=== PATIENT | female | born 1930 | race Caucasian/White ===

== ENCOUNTER 2017-04-15 08:27 | Outpatient (CLI) | payer MEDICARE, OTHER ==
[2017-04-15 09:04] LABS: #Basophils 0.1 thou/uL (0.0-0.2); #Eosinphils 0.2 thou/uL (0.0-0.7); #Lymphocytes 1.4 thou/uL (1.20-3.40); #Monocytes 0.7 thou/uL (0.11-0.59); #Neutrophils 4.9 thou/uL (1.40-6.50); %Basophils 1.4 % (0.0-1.0); %Eosinophils 2.7 % (0.0-10.0); %Lymphocytes 19.4 % (21.0-51.0); %Monocytes 10.1 % (0.0-10.0); %Neutrophils 66.3 % (42.0-75.0); Hemoglobin 13.7 g/dL (12.0-16.0); Mean Corpuscular HGB CONC 32.7 g/dL (32.0-36.0); Mean Corpuscular Volume 91.8 fl (81.0-99.0); Mean Platelet Volume 7.4 fL (7.4-10.4); Platelet Count 293 thou/uL (130-400); RBC Distribution Width 12.4 % (11.5-14.5); Red Blood Cell (RBC) Count 4.56 mill/uL (4.20-5.40); White Blood Cell (WBC) Count 7.4 thou/uL (4.8-10.8)
[2017-04-15 10:09] LABS: ALT (SGPT) 18 U/L (8-55); AST (SGOT) 19 U/L (5-34); Albumin 3.9 g/dL (3.4-4.8); Alkaline Phosphatase 118 U/L (40-150); Anion Gap 13 mmol/L (10-20); BUN (Urea Nitrogen) 16 mg/dL (9.8-20.1); Bilirubin, Total 0.6 mg/dL (0.2-1.2); Calc. Creatinine Clearance 0 mL/min (70-130); Carbon Dioxide 24 mmol/L (23-31); Cardiac Risk 3.1 (Less than 4.5); Chloride 105 mmol/L (98-107); Cholesterol 195 mg/dl (< 200 Desired); Estimated GFR-MDRD 70; Globulin 3.4 g/dL (2.4-3.5); Glucose 96 mg/dL (83-110); HDL Cholesterol 63 mg/dL (>60 Neg Risk); LDL Cholesterol, Calculated 114 mg/dL; Protein, Total 7.3 g/dL (6.0-8.3); Sodium 138 mmol/L (136-145); Triglycerides 89 mg/dL (Less than 150)
== END 2017-04-15 08:28 | disposition home or self-care (01) ==
LOC: MADLABBHPM 08:27
PROVIDERS: ATTEND Family Medicine
DX: E78.00 Pure hypercholesterolemia, unspecified (principal); F32.9 Major depressive disorder, single episode, unspecified
CPT/HCPCS: 36415; 80053; 80061; 84443; 85025

== ENCOUNTER 2017-05-20 16:19 | Outpatient (CLI) | payer MEDICARE, OTHER ==
--- NOTE | 2017-05-20 19:40 | CT ---
HEAD CT WITHOUT CONTRAST: Date: 05-20-17 Comparison: 02-25-15 History: Dizziness, off balance, progressive worsening of symptoms over the past two months. Technique: Serial axial CT imaging at 5 mm intervals from vertex through skull base without contrast . FINDINGS: The imaged paranasal sinuses/mastoid air cells are grossly unremarkable. No acute osseous abnormalit y. No intracranial hemorrhage, midline shift, or mass effect. Periventricular and deep white matter hypodensity noted, evidence of small vessel disease. No acute findings. IMPRESSION: Stable head CT. Small vessel disease. No intracranial hemorrhage. POS: [facility]
== END 2017-05-20 16:20 | disposition home or self-care (01) ==
LOC: MADCT 16:19
PROVIDERS: ATTEND Psychiatry & Neurology Clinical Neurophysiology
DX: G93.40 Encephalopathy, unspecified (principal); I73.9 Peripheral vascular disease, unspecified; R29.6 Repeated falls; I65.1 Occlusion and stenosis of basilar artery
CPT/HCPCS: 70450

== ENCOUNTER 2017-07-23 18:21 | Emergency (ER) | payer MEDICARE, OTHER ==
[2017-07-23 19:01] LABS: #Eosinphils 0.1 thou/uL (0.0-0.7); #Lymphocytes 1.2 thou/uL (1.20-3.40); #Monocytes 0.9 thou/uL (0.11-0.59); #Neutrophils 6.1 thou/uL (1.40-6.50); %Basophils 0.6 % (0.0-1.0); %Eosinophils 1.3 % (0.0-10.0); %Lymphocytes 14.7 % (21.0-51.0); %Monocytes 10.8 % (0.0-10.0); %Neutrophils 72.7 % (42.0-75.0); Hemoglobin 13.9 g/dL (12.0-16.0); Mean Corpuscular HGB CONC 32.5 g/dL (32.0-36.0); Mean Corpuscular Volume 89.2 fl (81.0-99.0); Platelet Count 283 thou/uL (130-400); RBC Distribution Width 12.6 % (11.5-14.5); Red Blood Cell (RBC) Count 4.79 mill/uL (4.20-5.40); White Blood Cell (WBC) Count 8.5 thou/uL (4.8-10.8)
[2017-07-23 19:09] LABS: INR-International Normal Ratio 1.1; PTT 30.1 SEC (22.9-36.1); Prothrombin Time 13.8 SEC (12.0-14.7)
[2017-07-23 19:21] LABS: ALT (SGPT) 18 U/L (8-55); AST (SGOT) 18 U/L (5-34); Albumin 3.9 g/dL (3.4-4.8); Alkaline Phosphatase 103 U/L (40-150); Anion Gap 12 mmol/L (10-20); BUN (Urea Nitrogen) 13 mg/dL (9.8-20.1); Bilirubin, Total 0.5 mg/dL (0.2-1.2); CK (CPK) 46 U/L (29-168); Calc. Creatinine Clearance 0 mL/min (70-130); Calcium 9.1 mg/dL (7.8-10.44); Carbon Dioxide 28 mmol/L (23-31); Chloride 104 mmol/L (98-107); Estimated GFR-MDRD 67; Globulin 3.6 g/dL (2.4-3.5); Glucose 90 mg/dL (83-110); Potassium 3.7 mmol/L (3.5-5.1); Protein, Total 7.5 g/dL (6.0-8.3); Sodium 140 mmol/L (136-145)
[2017-07-23 19:22] LABS: CKMB 0.6 ng/mL (0-6.6)
--- NOTE | 2017-07-23 19:50 | RAD ---
PORTABLE AP CHEST X-RAY: 07/23/17 HISTORY: Weakness. COMPARISON: 04/05/16. The cardiac silhouette is magnified by projection. Pulmonary vasculature is within normal limits. Th e lungs are clear. Thoracic aorta is tortuous. There has been no interval change from the prior stud y. IMPRESSION: No acute cardiopulmonary process. POS: [facility]
[2017-07-23 20:03] LABS: Clarity Cloudy (Clear); Specific Gravity, Urine 1.015 (1.005-1.030); pH, Urine 7.5 (5.0-9.0)
[2017-07-23 20:04] LABS: Bacteria/HPF 4+ HPF (None Seen); Bilirubin Negative (Negative); Blood, Urine Moderate (Negative); Glucose, Urine (Dipstick) Negative (Negative); Leukocyte Large (Negative); Nitrite Negative (Negative); Protein, Urine (Dipstick) 30 mg/dL (Neg-Trace); Squamous Epithelial 21-50 HPF (0-3); Urobilinogen 0.2 mg/dL (0.2-1.0)
[2017-07-23] MEDS ORDERED: Ketorolac Tromethamine 30 MG/ML VIAL ONE (20:40)
[2017-07-23] MEDS ORDERED: Ondansetron HCl/PF 4 MG/2 ML Vial ONE (20:40)
== END 2017-07-23 22:15 | disposition home or self-care (01) ==
LOC: MADERS 18:21
DX: N39.0 Urinary tract infection, site not specified (principal); K21.9 Gastro-esophageal reflux disease without esophagitis; F41.9 Anxiety disorder, unspecified; Z79.899 Other long term (current) drug therapy
CPT/HCPCS: 36415; 71010; 80053; 81001; 82553; 83735; 83880; 84484; 85025; 85610; 85730; 87040; 87086; 93005; 96365; 96375; J1885; J1956; J2405

== ENCOUNTER 2018-04-03 19:18 | Emergency (ER) | payer MEDICARE, OTHER ==
[2018-04-03] MEDS ORDERED: Lidocaine Viscous Sol 2% 15 ml UD Cup ONE (19:40)
[2018-04-03] MEDS ORDERED: Mag-Al Plus 1200 MG/1200 MG/120 MG/30 ML UDCUP ONE (19:40)
== END 2018-04-03 21:00 | disposition home or self-care (01) ==
LOC: MADERS 19:18
DX: K21.9 Gastro-esophageal reflux disease without esophagitis (principal); F41.9 Anxiety disorder, unspecified; Z79.01 Long term (current) use of anticoagulants; Z79.899 Other long term (current) drug therapy
CPT/HCPCS: 93005